=== PATIENT | female | born 1940 | race Caucasian/White ===

== ENCOUNTER 2022-12-23 16:47 | Emergency (ER) | payer MEDICARE ==
[~2022-12-23] VITALS: Ht 152.4 cm; Wt 69.5 kg
[2022-12-23 17:07] VITALS: TEMP 98.2
[2022-12-23] MEDS ORDERED: CRUTCHES MC (19:54)
[2022-12-23 20:14] VITALS: BP 146/80; PULSE 71
== END 2022-12-23 20:37 | disposition home or self-care (01) ==
LOC: COL.ER 16:47
DX: S92.352A Displaced fracture of fifth metatarsal bone, left foot, initial encounter for closed fracture (principal); S43.402A Unspecified sprain of left shoulder joint, initial encounter; W10.9XXA Fall (on) (from) unspecified stairs and steps, initial encounter; W22.8XXA Striking against or struck by other objects, initial encounter; X50.1XXA Overexertion from prolonged static or awkward postures, initial encounter
CPT/HCPCS: 31867; L4386